=== PATIENT | female | born 1975 ===

== ENCOUNTER 2021-05-20 10:09 | Inpatient (IN) ==
[2021-05-20] MEDS ORDERED: SODIUM CHLORIDE 0.9% 1,000 ML IV STA (10:47)
[2021-05-20] MEDS ORDERED: THIAMINE 200 MG/2 ML VIAL IV STA (10:47)
[2021-05-20 11:07] LABS: INR 1.8; PT Patient Result 19.4 SECS (10.5-12.0)
[2021-05-20] MEDS ORDERED: cefTRIAXone 1,000 MG in SODIUM CHLORIDE 0.9% 100 ML IV STA (11:13)
[2021-05-20 11:20] LABS: Albumin 1.8 G/DL (3.4-5.0); Calcium 7.4 MG/DL (8.5-10.1); Osmolality,Calculated 284.3 MOS/KG (273-304); Potassium 3.7 MMOL/L (3.5-5.1); Thyroid Stimulating Hormone 0.484 uIU/ml (0.358-3.74); Total Protein 7.1 G/DL (6.4-8.2)
[2021-05-20 11:25] LABS: Basophils % 0.3 % (0.0-0.8); Eosinophils % 0.1 % (0.00-10.9); Hematocrit 29.3 VOL% (35.7-47.0); Hemoglobin 9.9 GM/DL (12.0-16.0); Immature Granulocytes Absolute 0.14 #; Lymphocytes # 1.6 10*3/uL (1.4-4.0); Lymphocytes % 11.3 % (21.3-54.2); Mean Corpuscular HGB Conc 33.8 GM/DL (32-36); Mean Corpuscular Volume 103.2 FL (87-102); Mean Platelet Volume 9.6 FL (9.6-12.0); Monocytes % 6.1 % (1.7-12.7); Neutrophils % 81.2 % (38.7-73.9); Red Blood Count 2.84 MC/CUMM (3.8-5.5); White Blood Count 14.1 T/CUMM (4-12)
[2021-05-20 11:26] LABS: Bacteria,Urine Few /HPF (Few); Blood, Urine Moderate mg/dL (Negative); Glucose,Urine (UA) Negative (Negative); Ketones,Urine Negative (Negative); Mucus,Urine Moderate /LPF (Occasional); Nitrite,Urine Positive (Negative); Protein,Urine 30 MG/DL; Squamous Epithelial Cell,Urine Occasional /HPF (0-10); Urine Appearance CLEAR (Clear); Urine Color Amber (Yellow); Urine Specific Gravity 1.017 (1.001-1.035)
[2021-05-20 11:28] LABS: Platelet Count 44 T/CUMM (130-400)
[2021-05-20 11:29] LABS: Bilirubin,Urine Small mg/dL (Negative)
[2021-05-20 11:33] LABS: Barbiturates Screen,Urine Negative (Negative); Benzodiazepines Screen,Urine Negative (Negative); Cannabinoid Screen,Urine Negative (Negative); Opiate Screen,Urine Negative (Negative); Phencyclidine Screen,Urine Negative (Negative)
[2021-05-20 11:37] LABS: Bilirubin,Total 12.2 MG/DL (0.2-1.0)
[2021-05-20] MEDS ORDERED: ONDANSETRON 4 MG/2 ML VIAL IV PRN (11:54)
[2021-05-20] MEDS ORDERED: GLUCAGON 1 MG VIAL IM PRN (11:54)
[2021-05-20] MEDS ORDERED: ALBUTEROL 2.5 MG/3 ML NEB RESP TX PRN (11:54)
[2021-05-20] MEDS ORDERED: DEXTROSE 50% 25 GM/50 ML VIAL IV PRN (11:54)
[2021-05-20] MEDS ORDERED: SODIUM CHLORIDE 0.9% 1,000 ML IV ONE (11:57)
[2021-05-20 12:35] LABS: Platelet Estimate Decreased
[2021-05-20 13:09] LABS: Ferritin 325.7 ng/ml (8-252)
[2021-05-20] MEDS: INSULIN LISPRO 100 UNIT/ML SUBCUT SCH ×2 (13:37→17:54)
[2021-05-20 13:41] LABS: Hepatitis B Core IgM Quant < 0.05 Index; Hepatitis B Surface Ag Quant < 0.10 Index; Hepatitis B Surface Ag Result Non-Reactive (NonReactive); Hepatitis C Virus Ab Quant 0.21 Index; Hepatitis C Virus Ab Result Non-Reactive (NonReactive); Vitamin B12 1782 PG/ML (211-911)
[2021-05-20] MEDS: LACTULOSE 20 GM/30 ML UDCUP PO SCH ×2 (15:40→20:01)
[2021-05-20] MEDS: metroNIDAZOLE INJ 500 MG/100 ML PREMIX IV SCH ×2 (15:40→22:05)
[2021-05-21] MEDS: INSULIN LISPRO 100 UNIT/ML SUBCUT SCH ×4 (01:14→17:45)
[2021-05-21 02:38] LABS: Basophils % 0.2 % (0.0-0.8); Eosinophils # 0.1 10*3/uL (0.0-0.87); Eosinophils % 0.5 % (0.00-10.9); Hematocrit 26.9 VOL% (35.7-47.0); Hemoglobin 8.6 GM/DL (12.0-16.0); Immature Granulocytes % 1.2 %; Immature Granulocytes Absolute 0.18 #; Lymphocytes # 2.1 10*3/uL (1.4-4.0); Lymphocytes % 14.3 % (21.3-54.2); Mean Corpuscular Volume 105.5 FL (87-102); Mean Platelet Volume 9.9 FL (9.6-12.0); Monocytes % 9.4 % (1.7-12.7); Neutrophils % 74.4 % (38.7-73.9); Platelet Count 50 T/CUMM (130-400); Red Blood Count 2.55 MC/CUMM (3.8-5.5); Red Cell Distribution Width 16.8 % (9.3-17.3); White Blood Count 14.6 T/CUMM (4-12)
[2021-05-21 02:55] LABS: Alanine Aminotransferase 22 U/L (13-56); Albumin 1.7 G/DL (3.4-5.0); Alkaline Phosphatase 70 U/L (45-117); Aspartate Amino Transferase 44 U/L (0-37); Blood Urea Nitrogen 24 MG/DL (7-18); Calcium 7.6 MG/DL (8.5-10.1); Carbon Dioxide 22 MMOL/L (21-32); Estimated Glom Filtration Rate 99 ML/MIN; Glucose 113 MG/DL (74-106); HDL Cholesterol 12 MG/DL (40-60); Osmolality,Calculated 283.4 MOS/KG (273-304); Potassium 3.3 MMOL/L (3.5-5.1); Risk Ratio 4.17; Sodium 140 MMOL/L (136-145); Total Protein 6.8 G/DL (6.4-8.2); Triglycerides 77 MG/DL (2-150); VLDL CHOLESTEROL 15.4 MG/DL
[2021-05-21] MEDS: PANTOPRAZOLE 40 MG VIAL IV SCH (10:06)
[2021-05-21] MEDS: LACTULOSE 20 GM/30 ML UDCUP PO SCH ×3 (10:06→20:05)
[2021-05-21] MEDS: metroNIDAZOLE INJ 500 MG/100 ML PREMIX IV SCH ×2 (10:06→15:44)
[2021-05-21] MEDS: POTASSIUM CHLORIDE RIDER 10 MEQ/100 ML PREMIX IV PRN ×4 (11:31→17:16)
[2021-05-21] MEDS: cefTRIAXone 1,000 MG in SODIUM CHLORIDE 0.9% 100 ML IV SCH (20:05)
[2021-05-22] MEDS: metroNIDAZOLE INJ 500 MG/100 ML PREMIX IV SCH ×3 (00:10→17:05)
[2021-05-22] MEDS: INSULIN LISPRO 100 UNIT/ML SUBCUT SCH ×4 (01:31→17:08)
[2021-05-22 07:38] LABS: Basophils % 0.4 % (0.0-0.8); Eosinophils # 0.6 10*3/uL (0.0-0.87); Eosinophils % 5.2 % (0.00-10.9); Hematocrit 23.9 VOL% (35.7-47.0); Hemoglobin 7.5 GM/DL (12.0-16.0); Immature Granulocytes % 2.6 %; Immature Granulocytes Absolute 0.28 #; Lymphocytes % 18.3 % (21.3-54.2); Mean Corpuscular HGB Conc 31.4 GM/DL (32-36); Mean Corpuscular Volume 108.6 FL (87-102); Mean Platelet Volume 10.6 FL (9.6-12.0); Monocytes % 9.8 % (1.7-12.7); NRBC # 0.02 10*3/uL; Neutrophils % 63.7 % (38.7-73.9); Platelet Count 49 T/CUMM (130-400); Red Cell Distribution Width 16.5 % (9.3-17.3); White Blood Count 10.9 T/CUMM (4-12)
[2021-05-22 07:56] LABS: Albumin 1.2 G/DL (3.4-5.0); Bilirubin,Total 8.2 MG/DL (0.2-1.0); Calcium 7.3 MG/DL (8.5-10.1); Osmolality,Calculated 278.5 MOS/KG (273-304); Potassium 3.5 MMOL/L (3.5-5.1); Total Protein 5.9 G/DL (6.4-8.2)
[2021-05-22 08:09] LABS: Eosinophils 9 % (0-10); Hypochromasia 1+; Lymphocytes 14 % (20-55); Metamyelocytes 1 %; Segmented Neutrophils 70 % (50-85); Total Cells Counted 100
[2021-05-22 08:10] LABS: Microcytosis 1+; Platelet Estimate Decreased; Polychromasia Slight
[2021-05-22] MEDS: LACTULOSE 20 GM/30 ML UDCUP PO SCH ×3 (09:11→21:59)
[2021-05-22] MEDS: PANTOPRAZOLE 40 MG VIAL IV SCH (09:38)
[2021-05-22] MEDS: cefTRIAXone 1,000 MG in SODIUM CHLORIDE 0.9% 100 ML IV SCH (21:58)
[2021-05-23] MEDS: INSULIN LISPRO 100 UNIT/ML SUBCUT SCH ×4 (00:43→17:54)
[2021-05-23] MEDS: metroNIDAZOLE INJ 500 MG/100 ML PREMIX IV SCH ×3 (00:44→16:37)
[2021-05-23 05:44] LABS: Basophils # 0.1 10*3/uL (0.0-0.2); Basophils % 0.6 % (0.0-0.8); Eosinophils # 0.7 10*3/uL (0.0-0.87); Hematocrit 23.4 VOL% (35.7-47.0); Hemoglobin 7.7 GM/DL (12.0-16.0); Immature Granulocytes % 3.8 %; Immature Granulocytes Absolute 0.39 #; Lymphocytes # 2.1 10*3/uL (1.4-4.0); Lymphocytes % 20.5 % (21.3-54.2); Mean Corpuscular HGB Conc 32.9 GM/DL (32-36); Mean Corpuscular Volume 105.9 FL (87-102); Mean Platelet Volume 10.2 FL (9.6-12.0); Monocytes % 9.1 % (1.7-12.7); NRBC # 0.02 10*3/uL; Platelet Count 46 T/CUMM (130-400); Red Blood Count 2.21 MC/CUMM (3.8-5.5); Red Cell Distribution Width 17.2 % (9.3-17.3); White Blood Count 10.4 T/CUMM (4-12)
[2021-05-23 06:07] LABS: Hypochromasia 2+; Microcytosis 1+; Platelet Estimate Decreased
[2021-05-23 06:19] LABS: Albumin 1.7 G/DL (3.4-5.0); Bilirubin,Total 7.8 MG/DL (0.2-1.0); Calcium 7.5 MG/DL (8.5-10.1); Osmolality,Calculated 281.3 MOS/KG (273-304); Potassium 3.1 MMOL/L (3.5-5.1); Total Protein 6.5 G/DL (6.4-8.2)
[2021-05-23] MEDS: LACTATED RINGERS 1,000 ML IV SCH (07:36)
[2021-05-23] MEDS: POTASSIUM CHLORIDE RIDER 10 MEQ/100 ML PREMIX IV PRN ×4 (07:37→20:20)
[2021-05-23] MEDS: PANTOPRAZOLE 40 MG VIAL IV SCH (09:04)
[2021-05-23] MEDS: LACTULOSE 20 GM/30 ML UDCUP PO SCH ×3 (09:50→20:28)
[2021-05-23] MEDS ORDERED: propofoL 200 MG/20 ML VIAL IV ONE (14:31)
[2021-05-23] MEDS ORDERED: LIDOCAINE 2% 5 ML VIAL ONE (14:31)
[2021-05-23] MEDS ORDERED: DEXTROSE 50% 25 GM/50 ML VIAL IV PRN (14:38)
[2021-05-23] MEDS ORDERED: GLUCAGON 1 MG VIAL IM PRN (14:38)
[2021-05-23] MEDS: cefTRIAXone 1,000 MG in SODIUM CHLORIDE 0.9% 100 ML IV SCH (21:35)
[2021-05-24] MEDS: metroNIDAZOLE INJ 500 MG/100 ML PREMIX IV SCH ×2 (00:54→08:32)
[2021-05-24 06:15] LABS: Basophils # 0.1 10*3/uL (0.0-0.2); Basophils % 0.9 % (0.0-0.8); Eosinophils # 0.8 10*3/uL (0.0-0.87); Eosinophils % 9.4 % (0.00-10.9); Hematocrit 22.9 VOL% (35.7-47.0); Hemoglobin 7.3 GM/DL (12.0-16.0); Immature Granulocytes % 4.1 %; Immature Granulocytes Absolute 0.37 #; Lymphocytes # 1.9 10*3/uL (1.4-4.0); Lymphocytes % 21.3 % (21.3-54.2); Mean Corpuscular HGB Conc 31.9 GM/DL (32-36); NRBC # 0.03 10*3/uL; Neutrophils % 53.3 % (38.7-73.9); Platelet Count 56 T/CUMM (130-400); Red Blood Count 2.14 MC/CUMM (3.8-5.5); Red Cell Distribution Width 18.2 % (9.3-17.3); White Blood Count 8.9 T/CUMM (4-12)
[2021-05-24 06:29] LABS: INR 2.4; PT Patient Result 24.9 SECS (10.5-12.0)
[2021-05-24 06:35] LABS: Anisocytosis 1+; Hypochromasia 1+; Microcytosis 1+
[2021-05-24 06:36] LABS: Albumin 1.5 G/DL (3.4-5.0); Bilirubin,Total 6.4 MG/DL (0.2-1.0); Calcium 7.3 MG/DL (8.5-10.1); Osmolality,Calculated 277.4 MOS/KG (273-304); Ovalocytes Slight; Platelet Estimate Decreased; Polychromasia Slight; Potassium 3.9 MMOL/L (3.5-5.1); Total Protein 6.3 G/DL (6.4-8.2)
[2021-05-24] MEDS: INSULIN LISPRO 100 UNIT/ML SUBCUT SCH ×3 (06:40→11:53)
[2021-05-24] MEDS: LACTULOSE 20 GM/30 ML UDCUP PO SCH (08:32)
[2021-05-24] MEDS: PANTOPRAZOLE 40 MG VIAL IV SCH (08:33)
[2021-05-24] MEDS: LACTATED RINGERS 1,000 ML IV SCH (08:49)
[2021-05-24] MEDS ORDERED: PHYTONADIONE 5 MG/5 ML ORAL.SYR PO SCH (09:00)
[2021-05-24 11:57] VITALS: BP 105/40
== END 2021-05-24 12:13 | disposition home or self-care (01) | DRG 871 ==
LOC: EDBD → EDUNIT# → N.ED 10:09 → SUATTDRO 11:51 → N.EDINP 11:51 → N.5E 13:17
PROVIDERS: ADMIT Internal Medicine; ATTEND Internal Medicine

== ENCOUNTER 2021-06-10 15:26 | Inpatient (IN) ==
[2021-06-10] MEDS ORDERED: FUROSEMIDE 100 MG/10 ML VIAL IV STA (16:04)
[2021-06-10] MEDS ORDERED: FUROSEMIDE 40 MG/4 ML VIAL ONE (16:13)
[2021-06-10 16:44] LABS: Basophils % 0.5 % (0.0-0.8); Eosinophils # 0.3 10*3/uL (0.0-0.87); Eosinophils % 5.6 % (0.00-10.9); Hematocrit 19.8 VOL% (35.7-47.0); Immature Granulocytes % 0.7 %; Immature Granulocytes Absolute 0.04 #; Lymphocytes # 1.3 10*3/uL (1.4-4.0); Lymphocytes % 21.2 % (21.3-54.2); Mean Corpuscular HGB Conc 30.8 GM/DL (32-36); Mean Corpuscular Volume 108.8 FL (87-102); Mean Platelet Volume 8.5 FL (9.6-12.0); Monocytes % 9.5 % (1.7-12.7); Neutrophils % 62.5 % (38.7-73.9); Platelet Count 43 T/CUMM (130-400); Red Blood Count 1.82 MC/CUMM (3.8-5.5); Red Cell Distribution Width 18.4 % (9.3-17.3); White Blood Count 6.1 T/CUMM (4-12)
[2021-06-10 16:52] LABS: Hemoglobin 6.1 GM/DL (12.0-16.0)
[2021-06-10 17:04] LABS: Albumin 1.6 G/DL (3.4-5.0); Bilirubin,Direct 2.96 MG/DL (0.0-0.20); Bilirubin,Indirect 4.1 MG/DL (0.0-1.0); Bilirubin,Total 7.1 MG/DL (0.20-1.00); Calcium 7.2 MG/DL (8.5-10.1); Osmolality,Calculated 283.1 MOS/KG (273-304); Potassium 3.3 MMOL/L (3.5-5.1); Total Protein 6.3 G/DL (6.4-8.2)
[2021-06-10 17:06] LABS: PT Patient Result 23.5 SECS (10.5-12.0)
[2021-06-10 17:07] LABS: INR 2.3
[2021-06-10 17:08] LABS: Partial Thromboplastin Time 53.4 SECS (23.9-33.8)
[2021-06-10] MEDS ORDERED: SODIUM CHLORIDE 0.9% 1,000 ML IV PRN (17:26)
[2021-06-10] MEDS ORDERED: OCTREOTIDE 100 MCG/ML SYRINGE IV STA (18:02)
[2021-06-10] MEDS ORDERED: ONDANSETRON 4 MG/2 ML VIAL IV PRN (18:53)
[2021-06-10] MEDS ORDERED: ZALEPLON 5 MG CAPSULE PO PRN (18:53)
[2021-06-10] MEDS ORDERED: GLUCAGON 1 MG VIAL IM PRN (18:53)
[2021-06-10] MEDS ORDERED: diphenhydrAMINE CAP 25 MG CAPSULE PO PRN (18:53)
[2021-06-10] MEDS ORDERED: hydrALAZINE 20 MG/1 ML VIAL IV PRN (18:53)
[2021-06-10] MEDS ORDERED: MORPHINE 2 MG/1 ML SYRINGE IV PRN (18:53)
[2021-06-10] MEDS ORDERED: DEXTROSE 50% 25 GM/50 ML VIAL IV PRN (18:53)
[2021-06-10] MEDS ORDERED: guaiFENesin/DM ER 600-30 MG TABLET PO PRN (18:53)
[2021-06-10] MEDS ORDERED: NICOTINE 21 MG/24 HR PATCH TRANSDERM PRN (18:53)
[2021-06-10] MEDS ORDERED: LACTULOSE 320 GM/480 ML BOTTLE RECTAL PRN (18:56)
[2021-06-10] MEDS: PANTOPRAZOLE INJ 200 MG in SODIUM CHLORIDE 0.9% 250 ML IV SCH (19:50)
[2021-06-10] MEDS: OCTREOTIDE 500 MCG in SODIUM CHLORIDE 0.9% 100 ML IV SCH (19:50)
[2021-06-10 19:53] LABS: Bilirubin,Urine Negative (Negative); Blood, Urine Large mg/dL (Negative); Glucose,Urine (UA) Negative (Negative); Hyaline Casts,Urine 5 /LPF (0-3); Ketones,Urine Negative (Negative); Mucus,Urine Occasional /LPF (Occasional); Nitrite,Urine Negative (Negative); Protein,Urine Negative; RBC,Urine 20 /HPF (0-4); Squamous Epithelial Cell,Urine Occasional /HPF (0-10); Urine Appearance Slightly Hazy (Clear); Urine Color Yellow (Yellow); Urine Specific Gravity 1.006 (1.001-1.035); Urine Urobilinogen < 2.0 EU/DL (0.2-1.0)
[2021-06-10] MEDS ORDERED: LEVOFLOXACIN INJ 500 MG/100 ML PREMIX IV SCH (21:00)
[2021-06-10 22:47] LABS: Hematocrit 22.6 VOL% (35.7-47.0); Hemoglobin 7.1 GM/DL (12.0-16.0)
[2021-06-11] MEDS: POTASSIUM CHLORIDE INJ 10 MEQ in DEXTROSE 5% NACL 0.9% 1,000 ML IV SCH ×2 (01:42→22:03)
[2021-06-11] MEDS: OCTREOTIDE 500 MCG in SODIUM CHLORIDE 0.9% 100 ML IV SCH ×3 (04:53→15:37)
[2021-06-11 05:41] LABS: Basophils % 0.4 % (0.0-0.8); Eosinophils # 0.4 10*3/uL (0.0-0.87); Hematocrit 20.8 VOL% (35.7-47.0); Hemoglobin 6.5 GM/DL (12.0-16.0); Immature Granulocytes % 0.9 %; Immature Granulocytes Absolute 0.05 #; Lymphocytes # 1.2 10*3/uL (1.4-4.0); Lymphocytes % 20.2 % (21.3-54.2); Mean Corpuscular HGB Conc 31.3 GM/DL (32-36); Mean Corpuscular Volume 107.2 FL (87-102); Monocytes % 7.4 % (1.7-12.7); Neutrophils % 64.1 % (38.7-73.9); Red Blood Count 1.94 MC/CUMM (3.8-5.5); Red Cell Distribution Width 19.3 % (9.3-17.3); White Blood Count 5.7 T/CUMM (4-12)
[2021-06-11 05:55] LABS: Platelet Count 34 T/CUMM (130-400)
[2021-06-11 05:58] LABS: Calcium 7.1 MG/DL (8.5-10.1); Osmolality,Calculated 277.4 MOS/KG (273-304); Potassium 3.6 MMOL/L (3.5-5.1)
[2021-06-11 06:01] LABS: Albumin 1.4 G/DL (3.4-5.0); Bilirubin,Direct 3.22 MG/DL (0.0-0.20); Bilirubin,Indirect 4.9 MG/DL (0.0-1.0); Bilirubin,Total 8.1 MG/DL (0.20-1.00); Total Protein 5.6 G/DL (6.4-8.2)
[2021-06-11 06:16] LABS: Eosinophils 5 % (0-10); Hypochromasia 1+; Lymphocytes 11 % (20-55); Platelet Estimate Decreased; Segmented Neutrophils 80 % (50-85); Total Cells Counted 100
[2021-06-11] MEDS ORDERED: SODIUM CHLORIDE 0.9% 1,000 ML IV PRN ×2 (06:35→07:15)
[2021-06-11] MEDS: FUROSEMIDE 40 MG/4 ML VIAL IV SCH ×2 (10:06→17:25)
[2021-06-11] MEDS: BISACODYL 5 MG TABLET PO SCH (10:07)
[2021-06-11] MEDS ORDERED: tiZANidine 4 MG TABLET PO PRN (17:36)
[2021-06-11] MEDS: PANTOPRAZOLE INJ 200 MG in SODIUM CHLORIDE 0.9% 250 ML IV SCH (22:03)
[2021-06-11] MEDS: LEVOFLOXACIN INJ 500 MG/100 ML PREMIX IV SCH (23:04)
[2021-06-11] MEDS: LACTULOSE 20 GM/30 ML UDCUP PO SCH (23:05)
[2021-06-12] MEDS: OCTREOTIDE 500 MCG in SODIUM CHLORIDE 0.9% 100 ML IV SCH ×2 (01:37→13:40)
[2021-06-12 05:50] LABS: Basophils % 0.3 % (0.0-0.8); Eosinophils # 0.6 10*3/uL (0.0-0.87); Eosinophils % 7.1 % (0.00-10.9); Hematocrit 24.1 VOL% (35.7-47.0); Immature Granulocytes % 1.7 %; Immature Granulocytes Absolute 0.15 #; Lymphocytes # 1.6 10*3/uL (1.4-4.0); Lymphocytes % 17.6 % (21.3-54.2); Mean Corpuscular HGB Conc 31.1 GM/DL (32-36); Mean Corpuscular Volume 107.1 FL (87-102); Mean Platelet Volume 9.7 FL (9.6-12.0); Monocytes % 7.6 % (1.7-12.7); Neutrophils % 65.7 % (38.7-73.9); Red Cell Distribution Width 19.6 % (9.3-17.3)
[2021-06-12 05:56] LABS: White Blood Count 8.9 T/CUMM (4-12)
[2021-06-12 05:57] LABS: Hemoglobin 7.5 GM/DL (12.0-16.0); Platelet Count 69 T/CUMM (130-400); Red Blood Count 2.25 MC/CUMM (3.8-5.5)
[2021-06-12 06:11] LABS: INR 2.1; PT Patient Result 21.6 SECS (10.5-12.0)
[2021-06-12 06:13] LABS: Hypochromasia 1+; Microcytosis 1+; Ovalocytes Slight; Platelet Estimate Decreased
[2021-06-12 06:14] LABS: Albumin 1.5 G/DL (3.4-5.0); Bilirubin,Total 9.4 MG/DL (0.20-1.00); Osmolality,Calculated 280.4 MOS/KG (273-304); Potassium 3.5 MMOL/L (3.5-5.1); Total Protein 5.8 G/DL (6.4-8.2)
[2021-06-12] MEDS: FUROSEMIDE 40 MG/4 ML VIAL IV SCH ×2 (09:43→22:01)
[2021-06-12] MEDS: LACTULOSE 20 GM/30 ML UDCUP PO SCH ×3 (10:04→22:02)
[2021-06-12] MEDS: BISACODYL 5 MG TABLET PO SCH (10:04)
[2021-06-12] MEDS: SPIRONOLACTONE 25 MG TABLET PO SCH (10:04)
[2021-06-12] MEDS: POTASSIUM CHLORIDE INJ 10 MEQ in DEXTROSE 5% NACL 0.9% 1,000 ML IV SCH (13:53)
[2021-06-12] MEDS: VANCOMYCIN INJ 2,000 MG in SODIUM CHLORIDE 0.9% 500 ML IV SCH (22:11)
[2021-06-13] MEDS: PANTOPRAZOLE INJ 200 MG in SODIUM CHLORIDE 0.9% 250 ML IV SCH (00:04)
[2021-06-13] MEDS: LEVOFLOXACIN INJ 500 MG/100 ML PREMIX IV SCH ×2 (00:28→22:55)
[2021-06-13] MEDS: POTASSIUM CHLORIDE INJ 10 MEQ in DEXTROSE 5% NACL 0.9% 1,000 ML IV SCH ×3 (00:29→16:12)
[2021-06-13] MEDS: OCTREOTIDE 500 MCG in SODIUM CHLORIDE 0.9% 100 ML IV SCH ×3 (02:36→23:30)
[2021-06-13 07:51] LABS: Basophils % 0.3 % (0.0-0.8); Eosinophils # 0.6 10*3/uL (0.0-0.87); Eosinophils % 8.9 % (0.00-10.9); Hematocrit 20.6 VOL% (35.7-47.0); Hemoglobin 6.5 GM/DL (12.0-16.0); Immature Granulocytes % 1.4 %; Immature Granulocytes Absolute 0.09 #; Lymphocytes # 1.5 10*3/uL (1.4-4.0); Lymphocytes % 22.3 % (21.3-54.2); Mean Corpuscular HGB Conc 31.6 GM/DL (32-36); Mean Platelet Volume 9.3 FL (9.6-12.0); Monocytes % 9.1 % (1.7-12.7); Red Blood Count 1.98 MC/CUMM (3.8-5.5); Red Cell Distribution Width 19.1 % (9.3-17.3); White Blood Count 6.5 T/CUMM (4-12)
[2021-06-13 07:52] LABS: Platelet Count 43 T/CUMM (130-400)
[2021-06-13] MEDS ORDERED: SODIUM CHLORIDE 0.9% 1,000 ML IV PRN (08:00)
[2021-06-13 08:07] LABS: Albumin 1.3 G/DL (3.4-5.0); Bilirubin,Total 6.8 MG/DL (0.20-1.00); Calcium 6.9 MG/DL (8.5-10.1); Osmolality,Calculated 280.3 MOS/KG (273-304); Potassium 3.3 MMOL/L (3.5-5.1); Total Protein 5.4 G/DL (6.4-8.2)
[2021-06-13 08:12] LABS: INR 2.5; PT Patient Result 25.7 SECS (10.5-12.0)
[2021-06-13 08:19] LABS: Eosinophils 9 % (0-10); Hypochromasia 1+; Lymphocytes 21 % (20-55); Segmented Neutrophils 62 % (50-85); Total Cells Counted 100
[2021-06-13 08:20] LABS: Atypical Lymphocytes Few; Microcytosis 1+; Platelet Estimate Decreased
[2021-06-13] MEDS: FUROSEMIDE 40 MG/4 ML VIAL IV SCH ×2 (09:53→17:22)
[2021-06-13] MEDS: SPIRONOLACTONE 25 MG TABLET PO SCH ×2 (09:54→23:03)
[2021-06-13] MEDS: POTASSIUM CHLORIDE 20 MEQ TABLET PO PRN ×2 (09:58→14:05)
[2021-06-13] MEDS: LACTULOSE 20 GM/30 ML UDCUP PO SCH ×3 (10:36→23:06)
[2021-06-13] MEDS ORDERED: ETOMIDATE 20 MG/10 ML VIAL IV ONE (12:50)
[2021-06-13] MEDS ORDERED: propofoL 200 MG/20 ML VIAL IV ONE (12:50)
[2021-06-13] MEDS ORDERED: LIDOCAINE 2% 5 ML VIAL ONE (12:50)
[2021-06-13] MEDS ORDERED: PHENYLEPHRINE 10 MG/1 ML VIAL IV ONE (12:54)
[2021-06-13] MEDS: LACTATED RINGERS 1,000 ML IV SCH ×2 (13:10→13:17)
[2021-06-13] MEDS: BISACODYL 5 MG TABLET PO SCH (13:11)
[2021-06-13] MEDS: VANCOMYCIN INJ 2,000 MG in SODIUM CHLORIDE 0.9% 500 ML IV SCH ×2 (14:05→23:59)
[2021-06-13] MEDS ORDERED: BISACODYL 5 MG TABLET PO ONE (15:00)
[2021-06-13] MEDS ORDERED: POLYETHYLENE GLYCOL POWDER 255 GM BOTTLE PO ONE (18:00)
[2021-06-13 20:09] LABS: Hematocrit 23.8 VOL% (35.7-47.0); Hemoglobin 7.5 GM/DL (12.0-16.0)
[2021-06-13] MEDS: PANTOPRAZOLE 40 MG VIAL IV SCH (23:03)
[2021-06-14] MEDS: OCTREOTIDE 500 MCG in SODIUM CHLORIDE 0.9% 100 ML IV SCH ×2 (00:14→14:43)
[2021-06-14] MEDS ORDERED: POLYETHYLENE GLYCOL POWDER 255 GM BOTTLE PO ONE (05:00)
[2021-06-14 07:32] LABS: Basophils % 0.5 % (0.0-0.8); Eosinophils # 0.9 10*3/uL (0.0-0.87); Eosinophils % 10.7 % (0.00-10.9); Hematocrit 28.9 VOL% (35.7-47.0); Immature Granulocytes % 1.5 %; Immature Granulocytes Absolute 0.13 #; Lymphocytes # 1.9 10*3/uL (1.4-4.0); Lymphocytes % 21.6 % (21.3-54.2); Mean Corpuscular HGB Conc 31.1 GM/DL (32-36); Mean Corpuscular Volume 105.5 FL (87-102); Mean Platelet Volume 9.7 FL (9.6-12.0); Monocytes % 7.7 % (1.7-12.7); Red Cell Distribution Width 19.9 % (9.3-17.3)
[2021-06-14 07:35] LABS: Red Blood Count 2.74 MC/CUMM (3.8-5.5); White Blood Count 8.7 T/CUMM (4-12)
[2021-06-14 07:36] LABS: Platelet Count 61 T/CUMM (130-400)
[2021-06-14 07:54] LABS: Albumin 1.5 G/DL (3.4-5.0); Bilirubin,Total 8.4 MG/DL (0.20-1.00); Calcium 6.9 MG/DL (8.5-10.1); Osmolality,Calculated 281.4 MOS/KG (273-304); Potassium 3.4 MMOL/L (3.5-5.1); Total Protein 6.2 G/DL (6.4-8.2)
[2021-06-14 07:57] LABS: Hypochromasia 1+; Microcytosis 1+; Platelet Estimate Decreased
[2021-06-14] MEDS: LACTATED RINGERS 1,000 ML IV SCH (09:32)
[2021-06-14] MEDS: BISACODYL 5 MG TABLET PO SCH (09:33)
[2021-06-14] MEDS: FUROSEMIDE 40 MG/4 ML VIAL IV SCH ×2 (09:35→16:22)
[2021-06-14] MEDS: LACTULOSE 20 GM/30 ML UDCUP PO SCH ×3 (09:35→21:49)
[2021-06-14] MEDS: SPIRONOLACTONE 25 MG TABLET PO SCH ×2 (09:40→21:30)
[2021-06-14] MEDS: PANTOPRAZOLE 40 MG VIAL IV SCH ×2 (09:44→21:29)
[2021-06-14] MEDS: VANCOMYCIN INJ 2,000 MG in SODIUM CHLORIDE 0.9% 500 ML IV SCH ×2 (09:46→21:30)
[2021-06-14] MEDS ORDERED: LIDOCAINE 2% 5 ML VIAL ONE (12:52)
[2021-06-14] MEDS ORDERED: propofoL 200 MG/20 ML VIAL IV ONE ×2 (12:52→13:05)
[2021-06-14] MEDS ORDERED: PHENYLEPHRINE 1 MG/10 ML SYRINGE IV ONE ×2 (13:06→13:18)
[2021-06-15] MEDS: OCTREOTIDE 500 MCG in SODIUM CHLORIDE 0.9% 100 ML IV SCH ×3 (00:30→20:41)
[2021-06-15 04:44] LABS: Basophils % 0.4 % (0.0-0.8); Eosinophils # 0.7 10*3/uL (0.0-0.87); Eosinophils % 10.3 % (0.00-10.9); Hematocrit 24.8 VOL% (35.7-47.0); Hemoglobin 7.6 GM/DL (12.0-16.0); Immature Granulocytes Absolute 0.07 #; Lymphocytes # 1.6 10*3/uL (1.4-4.0); Lymphocytes % 22.9 % (21.3-54.2); Mean Corpuscular HGB Conc 30.6 GM/DL (32-36); Mean Corpuscular Volume 106.9 FL (87-102); Mean Platelet Volume 9.8 FL (9.6-12.0); Monocytes % 8.6 % (1.7-12.7); Neutrophils % 56.8 % (38.7-73.9); Platelet Count 51 T/CUMM (130-400); Red Blood Count 2.32 MC/CUMM (3.8-5.5); Red Cell Distribution Width 19.6 % (9.3-17.3)
[2021-06-15 05:11] LABS: Eosinophils 3 % (0-10); Hypochromasia 1+; Lymphocytes 8 % (20-55); Platelet Estimate Decreased; Segmented Neutrophils 89 % (50-85); Total Cells Counted 100
[2021-06-15 05:22] LABS: Albumin 1.4 G/DL (3.4-5.0); Bilirubin,Total 6.8 MG/DL (0.20-1.00); Calcium 6.8 MG/DL (8.5-10.1); Osmolality,Calculated 279.3 MOS/KG (273-304); Potassium 3.5 MMOL/L (3.5-5.1); Total Protein 5.5 G/DL (6.4-8.2)
[2021-06-15] MEDS: LACTULOSE 20 GM/30 ML UDCUP PO SCH ×2 (08:58→22:02)
[2021-06-15] MEDS: SPIRONOLACTONE 25 MG TABLET PO SCH ×2 (08:58→22:02)
[2021-06-15] MEDS: FUROSEMIDE 40 MG/4 ML VIAL IV SCH (08:59)
[2021-06-15] MEDS: BISACODYL 5 MG TABLET PO SCH (08:59)
[2021-06-15] MEDS: PANTOPRAZOLE 40 MG VIAL IV SCH ×2 (09:00→22:02)
[2021-06-15] MEDS: LACTATED RINGERS 1,000 ML IV SCH (09:02)
[2021-06-15] MEDS: VANCOMYCIN INJ 2,000 MG in SODIUM CHLORIDE 0.9% 500 ML IV SCH (10:21)
[2021-06-15] MEDS ORDERED: SODIUM CHLORIDE 0.9% 1,000 ML IV PRN (11:25)
[2021-06-15] MEDS ORDERED: ACETAMINOPHEN 325 MG TABLET PO PRN (14:54)
[2021-06-15] MEDS: FUROSEMIDE 20 MG TABLET PO SCH (15:51)
[2021-06-15] MEDS: LEVOFLOXACIN INJ 500 MG/100 ML PREMIX IV SCH (15:52)
[2021-06-16 04:25] LABS: Basophils % 0.4 % (0.0-0.8); Eosinophils # 0.6 10*3/uL (0.0-0.87); Eosinophils % 8.5 % (0.00-10.9); Hematocrit 27.7 VOL% (35.7-47.0); Hemoglobin 8.7 GM/DL (12.0-16.0); Immature Granulocytes % 0.5 %; Immature Granulocytes Absolute 0.04 #; Lymphocytes # 1.5 10*3/uL (1.4-4.0); Lymphocytes % 19.9 % (21.3-54.2); Mean Corpuscular HGB Conc 31.4 GM/DL (32-36); Mean Corpuscular Volume 103.7 FL (87-102); Mean Platelet Volume 9.8 FL (9.6-12.0); Monocytes % 9.8 % (1.7-12.7); Neutrophils % 60.9 % (38.7-73.9); Platelet Count 43 T/CUMM (130-400); Red Blood Count 2.67 MC/CUMM (3.8-5.5); Red Cell Distribution Width 19.4 % (9.3-17.3); White Blood Count 7.4 T/CUMM (4-12)
[2021-06-16 04:55] LABS: Hypochromasia 1+; Microcytosis 1+; Platelet Estimate Decreased
[2021-06-16 05:02] LABS: Albumin 1.4 G/DL (3.4-5.0); Bilirubin,Total 6.8 MG/DL (0.20-1.00); Calcium 6.9 MG/DL (8.5-10.1); Osmolality,Calculated 283.1 MOS/KG (273-304); Potassium 3.7 MMOL/L (3.5-5.1); Total Protein 5.9 G/DL (6.4-8.2)
[2021-06-16] MEDS: OCTREOTIDE 500 MCG in SODIUM CHLORIDE 0.9% 100 ML IV SCH (05:44)
[2021-06-16] MEDS: BISACODYL 5 MG TABLET PO SCH (08:50)
[2021-06-16] MEDS: FUROSEMIDE 20 MG TABLET PO SCH ×2 (08:50→15:23)
[2021-06-16] MEDS: LACTULOSE 20 GM/30 ML UDCUP PO SCH ×2 (08:50→21:27)
[2021-06-16] MEDS: SPIRONOLACTONE 25 MG TABLET PO SCH ×2 (08:51→21:26)
[2021-06-16] MEDS: PANTOPRAZOLE 40 MG VIAL IV SCH ×2 (08:55→21:31)
[2021-06-16] MEDS: LEVOFLOXACIN INJ 500 MG/100 ML PREMIX IV SCH (15:24)
[2021-06-17 06:04] LABS: Basophils % 0.4 % (0.0-0.8); Eosinophils # 0.5 10*3/uL (0.0-0.87); Eosinophils % 7.1 % (0.00-10.9); Hematocrit 26.3 VOL% (35.7-47.0); Hemoglobin 8.4 GM/DL (12.0-16.0); Immature Granulocytes % 0.8 %; Immature Granulocytes Absolute 0.06 #; Lymphocytes # 1.6 10*3/uL (1.4-4.0); Lymphocytes % 21.4 % (21.3-54.2); Mean Corpuscular HGB Conc 31.9 GM/DL (32-36); Mean Platelet Volume 9.4 FL (9.6-12.0); Neutrophils % 60.3 % (38.7-73.9); Red Blood Count 2.53 MC/CUMM (3.8-5.5); Red Cell Distribution Width 18.8 % (9.3-17.3); White Blood Count 7.2 T/CUMM (4-12)
[2021-06-17 06:05] LABS: Platelet Count 34 T/CUMM (130-400)
[2021-06-17 06:35] LABS: Albumin 1.3 G/DL (3.4-5.0); Bilirubin,Total 6.7 MG/DL (0.20-1.00); Calcium 7.1 MG/DL (8.5-10.1); Osmolality,Calculated 279.4 MOS/KG (273-304); Potassium 3.9 MMOL/L (3.5-5.1); Total Protein 5.9 G/DL (6.4-8.2)
[2021-06-17 06:47] LABS: Macrocytosis 2+
[2021-06-17 06:50] LABS: Platelet Estimate Decreased
[2021-06-17] MEDS: FUROSEMIDE 20 MG TABLET PO SCH ×2 (08:27→15:10)
[2021-06-17] MEDS: BISACODYL 5 MG TABLET PO SCH (08:28)
[2021-06-17] MEDS: LACTULOSE 20 GM/30 ML UDCUP PO SCH ×2 (08:28→20:58)
[2021-06-17] MEDS: PANTOPRAZOLE 40 MG VIAL IV SCH ×2 (08:28→20:56)
[2021-06-17] MEDS: SPIRONOLACTONE 25 MG TABLET PO SCH ×2 (08:38→20:57)
[2021-06-17] MEDS ORDERED: SODIUM CHLORIDE 0.9% 1,000 ML IV PRN (09:57)
[2021-06-17] MEDS: LEVOFLOXACIN INJ 500 MG/100 ML PREMIX IV SCH (15:09)
[2021-06-18] MEDS: BISACODYL 5 MG TABLET PO SCH (08:05)
[2021-06-18] MEDS: FUROSEMIDE 20 MG TABLET PO SCH ×2 (08:05→15:21)
[2021-06-18] MEDS: LACTULOSE 20 GM/30 ML UDCUP PO SCH ×2 (08:06→22:12)
[2021-06-18] MEDS: SPIRONOLACTONE 25 MG TABLET PO SCH ×2 (08:06→22:12)
[2021-06-18] MEDS: PANTOPRAZOLE 40 MG VIAL IV SCH ×2 (08:07→22:17)
[2021-06-18 08:57] LABS: Calcium 7.2 MG/DL (8.5-10.1); Osmolality,Calculated 281.4 MOS/KG (273-304); Potassium 3.9 MMOL/L (3.5-5.1)
[2021-06-18 09:00] LABS: Basophils % 0.4 % (0.0-0.8); Eosinophils # 0.5 10*3/uL (0.0-0.87); Eosinophils % 5.8 % (0.00-10.9); Hematocrit 26.6 VOL% (35.7-47.0); Hemoglobin 8.5 GM/DL (12.0-16.0); Immature Granulocytes % 0.6 %; Immature Granulocytes Absolute 0.05 #; Lymphocytes # 1.4 10*3/uL (1.4-4.0); Lymphocytes % 18.2 % (21.3-54.2); Mean Corpuscular Volume 104.7 FL (87-102); Monocytes % 11.7 % (1.7-12.7); Neutrophils % 63.3 % (38.7-73.9); Red Blood Count 2.54 MC/CUMM (3.8-5.5); Red Cell Distribution Width 18.5 % (9.3-17.3); White Blood Count 7.9 T/CUMM (4-12)
[2021-06-18 09:01] LABS: Platelet Count 41 T/CUMM (130-400)
[2021-06-18] MEDS: POTASSIUM CHLORIDE 20 MEQ TABLET PO PRN (09:24)
[2021-06-18 11:02] LABS: Ovalocytes Few; Platelet Estimate Decreased; Polychromasia Slight
[2021-06-18] MEDS: LEVOFLOXACIN INJ 500 MG/100 ML PREMIX IV SCH (15:20)
[2021-06-18] MEDS: ZALEPLON 5 MG CAPSULE PO PRN (23:44)
[2021-06-19 05:20] LABS: Basophils % 0.7 % (0.0-0.8); Eosinophils # 0.4 10*3/uL (0.0-0.87); Hematocrit 25.2 VOL% (35.7-47.0); Hemoglobin 8.2 GM/DL (12.0-16.0); Immature Granulocytes % 0.5 %; Immature Granulocytes Absolute 0.03 #; Lymphocytes # 1.4 10*3/uL (1.4-4.0); Lymphocytes % 22.5 % (21.3-54.2); Mean Corpuscular HGB Conc 32.5 GM/DL (32-36); Mean Corpuscular Volume 103.3 FL (87-102); Mean Platelet Volume 10.6 FL (9.6-12.0); Monocytes % 10.9 % (1.7-12.7); Neutrophils % 58.4 % (38.7-73.9); Red Blood Count 2.44 MC/CUMM (3.8-5.5); Red Cell Distribution Width 17.7 % (9.3-17.3); White Blood Count 6.1 T/CUMM (4-12)
[2021-06-19 05:25] LABS: Platelet Count 31 T/CUMM (130-400)
[2021-06-19 05:41] LABS: Hypochromasia 1+; Macrocytosis 1+
[2021-06-19 05:42] LABS: Platelet Estimate Decreased
[2021-06-19 05:53] LABS: Calcium 7.3 MG/DL (8.5-10.1); Osmolality,Calculated 281.4 MOS/KG (273-304)
[2021-06-19] MEDS: BISACODYL 5 MG TABLET PO SCH (09:40)
[2021-06-19] MEDS: SPIRONOLACTONE 25 MG TABLET PO SCH ×2 (09:40→21:11)
[2021-06-19] MEDS: LACTULOSE 20 GM/30 ML UDCUP PO SCH ×2 (09:40→21:15)
[2021-06-19] MEDS: FUROSEMIDE 20 MG TABLET PO SCH ×2 (09:40→17:50)
[2021-06-19] MEDS: PANTOPRAZOLE 40 MG VIAL IV SCH (09:43)
[2021-06-19] MEDS: PANTOPRAZOLE 40 MG TABLET PO SCH (21:12)
[2021-06-20] MEDS ORDERED: TUBERCULIN SKIN TEST 0.1 ML SYRINGE INTRADERM ONE (08:56)
[2021-06-20] MEDS: SPIRONOLACTONE 25 MG TABLET PO SCH ×2 (10:24→22:20)
[2021-06-20] MEDS: LACTULOSE 20 GM/30 ML UDCUP PO SCH ×2 (10:24→22:19)
[2021-06-20] MEDS: BISACODYL 5 MG TABLET PO SCH (10:25)
[2021-06-20] MEDS: PANTOPRAZOLE 40 MG TABLET PO SCH ×2 (10:25→22:20)
[2021-06-20] MEDS: FUROSEMIDE 20 MG TABLET PO SCH ×2 (10:25→15:39)
[2021-06-20] MEDS: ZALEPLON 5 MG CAPSULE PO PRN (22:58)
[2021-06-21 08:05] VITALS: BP 100/46
[2021-06-21] MEDS: FUROSEMIDE 20 MG TABLET PO SCH (08:24)
[2021-06-21] MEDS: BISACODYL 5 MG TABLET PO SCH (08:24)
[2021-06-21] MEDS: PANTOPRAZOLE 40 MG TABLET PO SCH (08:24)
[2021-06-21] MEDS: LACTULOSE 20 GM/30 ML UDCUP PO SCH (08:25)
[2021-06-21] MEDS: SPIRONOLACTONE 25 MG TABLET PO SCH (08:33)
== END 2021-06-21 11:25 | DRG 433 ==
LOC: EDUNIT# → EDBD → N.ED 15:26 → N.EDINP 18:53 → SUATTDRO 18:53 → N.TELEN 20:19
PROVIDERS: ADMIT Hospitalist; ATTEND Internal Medicine Geriatric Medicine

== ENCOUNTER 2021-08-02 23:43 | Inpatient (IN) ==
[2021-08-03 01:43] LABS: Albumin 1.5 G/DL (3.4-5.0); Bilirubin,Total 6.4 MG/DL (0.20-1.00); Calcium 7.3 MG/DL (8.5-10.1); Osmolality,Calculated 272.1 MOS/KG (273-304); Potassium 4.6 MMOL/L (3.5-5.1); Total Protein 6.1 G/DL (6.4-8.2)
[2021-08-03 02:05] LABS: Basophils % 0.6 % (0.0-0.8); Eosinophils # 0.4 10*3/uL (0.0-0.87); Eosinophils % 5.5 % (0.00-10.9); Hematocrit 19.8 VOL% (35.7-47.0); Immature Granulocytes Absolute 0.07 #; Lymphocytes # 1.5 10*3/uL (1.4-4.0); Lymphocytes % 22.7 % (21.3-54.2); Mean Corpuscular HGB Conc 31.3 GM/DL (32-36); Mean Corpuscular Volume 106.5 FL (87-102); Neutrophils % 60.2 % (38.7-73.9); Red Blood Count 1.86 MC/CUMM (3.8-5.5); White Blood Count 6.7 T/CUMM (4-12)
[2021-08-03 02:06] LABS: Hemoglobin 6.2 GM/DL (12.0-16.0)
[2021-08-03 02:07] LABS: Platelet Count 27 T/CUMM (130-400)
[2021-08-03 02:12] LABS: Bacteria,Urine Moderate /HPF (Few); Bilirubin,Urine Small mg/dL (Negative); Blood, Urine Negative (Negative); Glucose,Urine (UA) Negative (Negative); Hyaline Casts,Urine 59 /LPF (0-3); Ketones,Urine Negative (Negative); Mucus,Urine Moderate /LPF (Occasional); Nitrite,Urine Positive (Negative); Protein,Urine Negative; RBC,Urine 5 /HPF (0-4); Squamous Epithelial Cell,Urine Occasional /HPF (0-10); Urine Appearance Slightly Hazy (Clear); Urine Color Amber (Yellow); Urine Specific Gravity 1.019 (1.001-1.035)
[2021-08-03] MEDS ORDERED: LEVOFLOXACIN INJ 750 MG/150 ML PREMIX IV STA (02:13)
[2021-08-03] MEDS ORDERED: GLUCAGON 1 MG VIAL IM PRN (03:20)
[2021-08-03] MEDS ORDERED: DEXTROSE 50% 25 GM/50 ML VIAL IV PRN (03:20)
[2021-08-03] MEDS ORDERED: SODIUM CHLORIDE 0.9% 1,000 ML IV PRN (03:42)
[2021-08-03 06:05] LABS: INR 2.2; PT Patient Result 23.8 SECS (10.5-12.0); Partial Thromboplastin Time 62.3 SECS (23.9-33.8)
[2021-08-03] MEDS ORDERED: cefTRIAXone 1,000 MG in SODIUM CHLORIDE 0.9% 100 ML IV SCH (09:00)
[2021-08-03] MEDS: RIFAXIMIN 550 MG TABLET PO SCH ×2 (12:26→20:24)
[2021-08-03] MEDS: SPIRONOLACTONE 25 MG TABLET PO SCH (12:26)
[2021-08-03] MEDS: FUROSEMIDE 40 MG TABLET PO SCH (12:26)
[2021-08-03] MEDS: LACTULOSE 20 GM/30 ML UDCUP PO SCH ×2 (12:26→20:27)
[2021-08-03] MEDS: PANTOPRAZOLE 40 MG VIAL IV SCH ×2 (12:27→20:24)
[2021-08-03 17:17] LABS: Hematocrit 28.5 VOL% (35.7-47.0); Hemoglobin 8.7 GM/DL (12.0-16.0)
[2021-08-03 23:29] LABS: Hemoglobin 8.2 GM/DL (12.0-16.0)
[2021-08-04 05:37] LABS: Basophils % 0.7 % (0.0-0.8); Eosinophils # 0.3 10*3/uL (0.0-0.87); Eosinophils % 4.6 % (0.00-10.9); Hematocrit 25.1 VOL% (35.7-47.0); Hemoglobin 7.9 GM/DL (12.0-16.0); Immature Granulocytes % 2.1 %; Immature Granulocytes Absolute 0.12 #; Lymphocytes # 1.3 10*3/uL (1.4-4.0); Lymphocytes % 22.4 % (21.3-54.2); Mean Corpuscular HGB Conc 31.5 GM/DL (32-36); Mean Corpuscular Volume 101.2 FL (87-102); Monocytes % 10.4 % (1.7-12.7); Neutrophils % 59.8 % (38.7-73.9); Platelet Count 48 T/CUMM (130-400); Red Blood Count 2.48 MC/CUMM (3.8-5.5); Red Cell Distribution Width 28.1 % (9.3-17.3); White Blood Count 5.9 T/CUMM (4-12)
[2021-08-04] MEDS ORDERED: LEVOFLOXACIN INJ 750 MG/150 ML PREMIX IV SCH (06:00)
[2021-08-04 06:03] LABS: Hypochromasia 1+; Microcytosis 1+; Platelet Estimate Decreased
[2021-08-04 06:12] LABS: Albumin 1.2 G/DL (3.4-5.0); Bilirubin,Total 9.4 MG/DL (0.20-1.00); Calcium 7.6 MG/DL (8.5-10.1); Osmolality,Calculated 278.5 MOS/KG (273-304); Potassium 4.2 MMOL/L (3.5-5.1); Total Protein 5.9 G/DL (6.4-8.2)
[2021-08-04 08:53] LABS: % Iron Saturation 68.9 % (18-50); Ferritin 408.8 ng/mL (8-252)
[2021-08-04] MEDS: LACTULOSE 20 GM/30 ML UDCUP PO SCH (09:13)
[2021-08-04] MEDS: FUROSEMIDE 40 MG TABLET PO SCH (09:13)
[2021-08-04] MEDS: RIFAXIMIN 550 MG TABLET PO SCH (09:14)
[2021-08-04] MEDS: SPIRONOLACTONE 25 MG TABLET PO SCH (09:14)
[2021-08-04] MEDS: PANTOPRAZOLE 40 MG VIAL IV SCH (09:15)
[2021-08-04 16:14] VITALS: BP 127/62
== END 2021-08-04 15:56 | disposition home or self-care (01) | DRG 433 ==
LOC: EDBD → EDUNIT# → N.ED 23:43 → N.EDINP 08-03 03:20 → N.4E 08-03 08:54
PROVIDERS: ADMIT Internal Medicine; ATTEND Internal Medicine